=== PATIENT | male | born 1970 | race Caucasian/White ===

== ENCOUNTER 2018-05-06 17:05 | Inpatient (IN) ==
[2018-05-06] MEDS ORDERED: Isovue-370 500 ML BOTTLE IVP ONE (19:50)
[2018-05-06] MEDS ORDERED: 0.9 % Sodium Chloride 1,000 ML IVC ONE (19:51)
[2018-05-06] MEDS ORDERED: Piperacillin/Tazobactam 3.375 GM in 0.9 % Sodium Chloride Mini Bag 100 ML IVPB ONE (19:51)
--- NOTE | 2018-05-06 20:11 | Emergency Department Note ---
Disposition Clinical Impression: Abscess of arm, right, IV drug user Disposition: Admitted As Inpatient Condition: Good Referrals: NONE,PCP [Primary Care Provider] - Forms: ED Satisfaction Letter Time of Disposition: 22:10 Skin/Abscess/FB HPI Chief complaint: ED Skin/Abscess/Foreign Body Stated complaint: Abcess on right arm Time Seen by Provider: 05/06/18 19:41 Source: patient, family Mode of arrival: ambulatory Limitations: no limitations Nursing Notes Reviewed: Yes Vital Signs Reviewed: Yes HPI Narrative: Nontoxic-appearing 47-year-old male presents for evaluation of an abscess to the right antecubital region. The area began approximately 4 days ago after the pa tient injected heroin. He states a history of abscesses in the same arm in the past. He denies any associated fever, chills, nausea, vomiting, abdominal pain, or generalized malaise. Tetanus immunization status is up-to-date. He does go on to state that he has had a cough that is productive of yellowish/brownish colored sputum for the past 45 days. Pt Subjective Complaint: abscess/boil Onset (ago): day(s) (4) Tetanus Up to Date: yes Location: RUE Severity: moderate Severity scale (1-10): 6 Quality: aching Consistency: Worsening Improves with: none Worsens with: palpation, movement Context: IVDA Associated symptoms: Reports: cough. Denies: fever, chills, nausea, vomiting, malaise, arthralgias Treatments prior to arrival: none Previous Rx's Medication Instructions Recorded Acetaminophen [8 Hour] 650 mg PO Q8H PRN #24 tablet.er 03/24/18 Allergies Allergy/AdvReac Type Severity Reaction Status Date / Time hydrocodone [From Vicodin] AdvReac Itching Verified 05/05/18 13:27 All systems ED: reviewed and negative except as stated. Review of Systems: As Per HPI Constitutional: Denies: fever, chills, weakness, weight change Eyes: Denies: eye pain, eye discharge, vision change ENT ED: Denies: ear pain, throat pain, dental pain, hearing loss, epistaxis, congestion, dysphagia Cardiovascular: Denies: chest pain, palpitations, dyspnea on exertion, edema, syncope Respiratory: Reports: as per HPI, cough, sputum production. Denies: dyspnea, wheezes, hemoptysis, stridor Gastrointestinal: Denies: abdominal pain, nausea, vomiting, diarrhea, constipation, hematemesis, melena, hematochezia Genitourinary: Denies: urgency, dysuria, frequency, hematuria Musculoskeletal: Denies: back pain, neck pain, arthralgia, myalgia Integumentary: Reports: as per HPI, other (Right antecubital region abscess). Denies: rash, abrasion, lesions Neurological: Denies: headache, weakness, numbness, paresthesias, confusion, abnormal gait, vertigo Psychiatric: Denies: anxiety, depression, suicidal thoughts, homicidal thoughts, auditory hallucinations, visual hallucinations Endocrine: Denies: fatigue Hematological/Lymphatic: Denies: easy bleeding, easy bruising Allergic/Immunologic: Denies: facial swelling, urticaria Past Medical History - Past Medical History Attestation: Yes The following information was validated with the patient. Source: patient, nursing notes reviewed Medical history: Reports: no medical history Surgical history: Reports: other (Thoracotomy) Psychiatric history: Reports: no psych history - Social History Smoking Status: Current every day smoker Smokeless Tobacco Status: No Alcohol use: Reports: occasionally Drug use: Reports: IV Drug Use Physical Exam - General Limitations: no limitations General appearance: alert, in no apparent distress - Head Head exam: atraumatic, normocephalic, normal inspection - Eye Eye exam: Present: normal appearance, PERRL, EOMI. Absent: nystagmus - ENT ENT exam: mucous membranes moist - Neck Neck exam: Present: normal inspection, full ROM - Chest Chest inspection: Present: normal inspection, symmetric chest wall rise - Respiratory Respiratory exam: Present: wheezes (Faint inspiratory and expiratory wheezes noted throughout), other (Lungs sounds coarse throughout the periphery). Absent: respiratory distress, stridor, accessory muscle use, prolonged expiratory phase - Cardiovascular Cardiovascular exam: Present: regular rate, normal rhythm, normal heart sounds - Abdominal Exam Abdominal exam: Present: soft, Non-Tender, normal bowel sounds - Expanded Upper Extremity Exam Shoulder exam: Present: normal inspection, full ROM Arm exam: Present: normal inspection, full ROM Elbow exam: Present: full ROM, tenderness, swelling, erythema (Large abscess noted to the medial aspect of the right antecubital region. Moderate surrounding erythema. Area centralized fluctuance is noted. No discharge or drainage.) Forearm/Wrist exam: Present: normal inspection, full ROM Hand exam: Present: normal inspection, full ROM Neuromotor exam: Normal: wrist extension, thumb opposition, fingers 2-5 abdu ction Neurosensory exam: Normal: radial nerve, ulnar nerve, 2-point discrimination Hand tendon exam: Normal: flexor digitorum profundus (location), extensor tendon (location) Vascular exam: Normal: capillary refill, radial pulse, ulnar pulse - Neurological Exam Neurological exam: Present: alert, oriented X3, normal gait - Psychiatric Psychiatric exam: Present: normal affect, normal mood - Skin Skin exam: Present: warm, dry, intact Course Course Narrative: After review of the CT imaging and CT to very superficial puncture wounds were made with 11 blade scalpel. Very minimal amount of purulent drainage was noted. We will consult Gen. surgery admit to the hospital service for outpatient surgery consult and IV antibiotics. 2199: I spoke with Dr. Nuno, general surgery architectural draftsperson. She agrees to consult with the patient in house. At this time, I am awaiting a return phone call from the hospitalist. 2219: I spoke with Dr. Aguero of the Hospital services accepted the patient for further management. Vital Signs Temperature 100.1 F H 05/06/18 17:08 Pulse Rate 107 05/06/18 17:08 Respiratory Rate 20 05/06/18 17:08 Blood Pressure 137/86 05/06/18 17:08 O2 Sat by Pulse Oximetry 92 05/06/18 17:08 Temperature 100.1 F H 05/06/18 17:08 Pulse Rate 107 05/06/18 17:08 Respiratory Rate 20 05/06/18 17:08 Blood Pressure 137/86 05/06/18 17:08 O2 Sat by Pulse Oximetry 92 05/06/18 17:08 Oxygen Delivery Oxygen Delivery Room Air Skin/Abscess/Foreign Body - Medical Records Medical records reviewed: Yes I reviewed the patient's medical records. - Lab Data Lab results reviewed: Yes I reviewed the patient's lab results. Lab results narrative: Lab Results 05/06/18 05/06/18 05/06/18 Range/Units 20:09 20:09 20:09 WBC 10.4 (4.3-11.1) K/mcL RBC 3.69 L (4.19-5.50) M/mcL Hgb 12.0 L D (12.9-16.9) g/dL Hct 35.0 L (37.5-50.1) % MCV 94.9 (83.0-100.0) fL MCH 32.5 (28.0-33.3) pg MCHC 34.3 (31.6-35.5) g/dL RDW 12.3 (11.5-14.5) % Plt Count 129 L (140-400) K/mcL MPV 10.0 (9.4-12.4) fL Immature Gran % 0.3 (0-4) % Seg Neutrophils % 68.7 % Lymphocytes % 15.1 % Monocytes % 12.4 % Eosinophils % 2.8 % Basophils % 0.7 % Neutrophils # 7.2 (1.6-8.9) K/mcL Lymphocytes # 1.6 (0.6-4.6) K/mcL Monocytes # 1.3 (0.0-1.3) K/mcL Eosinophils # 0.3 (0.0-0.6) K/mcL Basophils # 0.1 (0.0-0.2) K/mcL ESR 36 H (0-10) mm/hr Sodium 133 L (136-145) mEq/L Potassium 4.2 (3.5-5.1) mEq/L Chloride 97 L (98-107) mEq/L Carbon Dioxide 30 H (23-29) mEq/L BUN 16 (6-20) mg/dL Creatinine 0.78 (0.70-1.30) mg/dL Est GFR ( Amer) > 60 (> 60) Est GFR (Non-Af Amer) > 60 (> 60) BUN/Creatinine Ratio 21 (6-26) Glucose 128 H (70-105) mg/dL Calculated Osmolality 279 L (280-300) Lactic Acid (0.5-2.2) mmol/L Calcium 8.6 (8.6-10.3) mg/dL C-Reactive Protein 69 H (Less than 10) mg/L 05/06/18 Range/Units 20:09 WBC (4.3-11.1) K/mcL RBC (4.19-5.50) M/mcL Hgb (12.9-16.9) g/dL Hct (37.5-50.1) % MCV (83.0-100.0) fL MCH (28.0-33.3) pg MCHC (31.6-35.5) g/dL RDW (11.5-14.5) % Plt Count (140-400) K/mcL MPV (9.4-12.4) fL Immature Gran % (0-4) % Seg Neutrophils % % Lymphocytes % % Monocytes % % Eosinophils % % Basophils % % Neutrophils # (1.6-8.9) K/mcL Lymphocytes # (0.6-4.6) K/mcL Monocytes # (0.0-1.3) K/mcL Eosinophils # (0.0-0.6) K/mcL Basophils # (0.0-0.2) K/mcL ESR (0-10) mm/hr Sodium (136-145) mEq/L Potassium (3.5-5.1) mEq/L Chloride (98-107) mEq/L Carbon Dioxide (23-29) mEq/L BUN (6-20) mg/dL Creatinine (0.70-1.30) mg/dL Est GFR ( Amer) (> 60) Est GFR (Non-Af Amer) (> 60) BUN/Creatinine Ratio (6-26) Glucose (70-105) mg/dL Calculated Osmolality (280-300) Lactic Acid 1.6 (0.5-2.2) mmol/L Calcium (8.6-10.3) mg/dL C-Reactive Protein (Less than 10) mg/L Result diagrams: 05/06/18 20:09 05/06/18 20:09 Lab Results 05/06/18 05/06/18 05/06/18 Range/Units 20:09 20:09 20:09 WBC 10.4 (4.3-11.1) K/mcL RBC 3.69 L (4.19-5.50) M/mcL Hgb 12.0 L D (12.9-16.9) g/dL Hct 35.0 L (37.5-50.1) % MCV 94.9 (83.0-100.0) fL MCH 32.5 (28.0-33.3) pg MCHC 34.3 (31.6-35.5) g/dL RDW 12.3 (11.5-14.5) % Plt Count 129 L (140-400) K/mcL MPV 10.0 (9.4-12.4) fL Immature Gran % 0.3 (0-4) % Seg Neutrophils % 68.7 % Lymphocytes % 15.1 % Monocytes % 12.4 % Eosinophils % 2.8 % Basophils % 0.7 % Neutrophils # 7.2 (1.6-8.9) K/mcL Lymphocytes # 1.6 (0.6-4.6) K/mcL Monocytes # 1.3 (0.0-1.3) K/mcL Eosinophils # 0.3 (0.0-0.6) K/mcL Basophils # 0.1 (0.0-0.2) K/mcL ESR 36 H (0-10) mm/hr Sodium 133 L (136-145) mEq/L Potassium 4.2 (3.5-5.1) mEq/L Chloride 97 L (98-107) mEq/L Carbon Dioxide 30 H (23-29) mEq/L BUN 16 (6-20) mg/dL Creatinine 0.78 (0.70-1.30) mg/dL Est GFR ( Amer) > 60 (> 60) Est GFR (Non-Af Amer) > 60 (> 60) BUN/Creatinine Ratio 21 (6-26) Glucose 128 H (70-105) mg/dL Calculated Osmolality 279 L (280-300) Lactic Acid (0.5-2.2) mmol/L Calcium 8.6 (8.6-10.3) mg/dL C-Reactive Protein 69 H (Less than 10) mg/L 05/06/18 Range/Units 20:09 WBC (4.3-11.1) K/mcL RBC (4.19-5.50) M/mcL Hgb (12.9-16.9) g/dL Hct (37.5-50.1) % MCV (83.0-100.0) fL MCH (28.0-33.3) pg MCHC (31.6-35.5) g/dL RDW (11.5-14.5) % Plt Count (140-400) K/mcL MPV (9.4-12.4) fL Immature Gran % (0-4) % Seg Neutrophils % % Lymphocytes % % Monocytes % % Eosinophils % % Basophils % % Neutrophils # (1.6-8.9) K/mcL Lymphocytes # (0.6-4.6) K/mcL Monocytes # (0.0-1.3) K/mcL Eosinophils # (0.0-0.6) K/mcL Basophils # (0.0-0.2) K/mcL ESR (0-10) mm/hr Sodium (136-145) mEq/L Potassium (3.5-5.1) mEq/L Chloride (98-107) mEq/L Carbon Dioxide (23-29) mEq/L BUN (6-20) mg/dL Creatinine (0.70-1.30) mg/dL Est GFR ( Amer) (> 60) Est GFR (Non-Af Amer) (> 60) BUN/Creatinine Ratio (6-26) Glucose (70-105) mg/dL Calculated Osmolality (280-300) Lactic Acid 1.6 (0.5-2.2) mmol/L Calcium (8.6-10.3) mg/dL C-Reactive Protein (Less than 10) mg/L - Radiology Data Radiology results reviewed: Yes I reviewed the patient's radiology results. Lab Results 05/06/18 05/06/18 05/06/18 Range/Units 20:09 20:09 20:09 WBC 10.4 (4.3-11.1) K/mcL RBC 3.69 L (4.19-5.50) M/mcL Hgb 12.0 L D (12.9-16.9) g/dL Hct 35.0 L (37.5-50.1) % MCV 94.9 (83.0-100.0) fL MCH 32.5 (28.0-33.3) pg MCHC 34.3 (31.6-35.5) g/dL RDW 12.3 (11.5-14.5) % Plt Count 129 L (140-400) K/mcL MPV 10.0 (9.4-12.4) fL Immature Gran % 0.3 (0-4) % Seg Neutrophils % 68.7 % Lymphocytes % 15.1 % Monocytes % 12.4 % Eosinophils % 2.8 % Basophils % 0.7 % Neutrophils # 7.2 (1.6-8.9) K/mcL Lymphocytes # 1.6 (0.6-4.6) K/mcL Monocytes # 1.3 (0.0-1.3) K/mcL Eosinophils # 0.3 (0.0-0.6) K/mcL Basophils # 0.1 (0.0-0.2) K/mcL ESR 36 H (0-10) mm/hr Sodium 133 L (136-145) mEq/L Potassium 4.2 (3.5-5.1) mEq/L Chloride 97 L (98-107) mEq/L Carbon Dioxide 30 H (23-29) mEq/L BUN 16 (6-20) mg/dL Creatinine 0.78 (0.70-1.30) mg/dL Est GFR ( Amer) > 60 (> 60) Est GFR (Non-Af Amer) > 60 (> 60) BUN/Creatinine Ratio 21 (6-26) Glucose 128 H (70-105) mg/dL Calculated Osmolality 279 L (280-300) Lactic Acid (0.5-2.2) mmol/L Calcium 8.6 (8.6-10.3) mg/dL C-Reactive Protein 69 H (Less than 10) mg/L 05/06/18 Range/Units 20:09 WBC (4.3-11.1) K/mcL RBC (4.19-5.50) M/mcL Hgb (12.9-16.9) g/dL Hct (37.5-50.1) % MCV (83.0-100.0) fL MCH (28.0-33.3) pg MCHC (31.6-35.5) g/dL RDW (11.5-14.5) % Plt Count (140-400) K/mcL MPV (9.4-12.4) fL Immature Gran % (0-4) % Seg Neutrophils % % Lymphocytes % % Monocytes % % Eosinophils % % Basophils % % Neutrophils # (1.6-8.9) K/mcL Lymphocytes # (0.6-4.6) K/mcL Monocytes # (0.0-1.3) K/mcL Eosinophils # (0.0-0.6) K/mcL Basophils # (0.0-0.2) K/mcL ESR (0-10) mm/hr Sodium (136-145) mEq/L Potassium (3.5-5.1) mEq/L Chloride (98-107) mEq/L Carbon Dioxide (23-29) mEq/L BUN (6-20) mg/dL Creatinine (0.70-1.30) mg/dL Est GFR ( Amer) (> 60) Est GFR (Non-Af Amer) (> 60) BUN/Creatinine Ratio (6-26) Glucose (70-105) mg/dL Calculated Osmolality (280-300) Lactic Acid 1.6 (0.5-2.2) mmol/L Calcium (8.6-10.3) mg/dL C-Reactive Protein (Less than 10) mg/L
[2018-05-06 20:22] LABS: Basophils # 0.1 K/mcL (0.0-0.2); Basophils % 0.7 %; Eosinophils # 0.3 K/mcL (0.0-0.6); Eosinophils % 2.8 %; Immature Granulocytes % 0.3 % (0-4); Lymphocytes # 1.6 K/mcL (0.6-4.6); Lymphocytes % 15.1 %; Mean Corpuscular HGB Conc 34.3 g/dL (31.6-35.5); Mean Corpuscular Hemoglobin 32.5 pg (28.0-33.3); Mean Corpuscular Volume 94.9 fL (83.0-100.0); Monocytes # 1.3 K/mcL (0.0-1.3); Monocytes % 12.4 %; Neutrophils # 7.2 K/mcL (1.6-8.9); Platelet Count 129 K/mcL (140-400); Red Blood Count 3.69 M/mcL (4.19-5.50); Red Cell Distribution Width 12.3 % (11.5-14.5); Segmented Neutrophils % 68.7 %
[2018-05-06] MEDS ORDERED: Ondansetron 4 MG/2 ML VIAL IVP ONE (20:40)
[2018-05-06 20:41] LABS: BUN/Creatinine Ratio 21 (6-26); Blood Urea Nitrogen 16 mg/dL (6-20); C-Reactive Protein 69 mg/L (Less than 10); Calcium 8.6 mg/dL (8.6-10.3); Carbon Dioxide 30 mEq/L (23-29); Chloride 97 mEq/L (98-107); Glucose 128 mg/dL (70-105); Osmolality,Calculated 279 (280-300); Potassium 4.2 mEq/L (3.5-5.1); Sodium 133 mEq/L (136-145); eGFR For Non-African Americans > 60 (> 60)
--- NOTE | 2018-05-06 21:53 | Emergency Department Note ---
Disposition Clinical Impression: Abscess of arm, right, IV drug user Disposition: Admitted As Inpatient Forms: ED Satisfaction Letter General Adult HPI - General Chief complaint: ED Skin/Abscess/Foreign Body Stated complaint: Abcess on right arm Time Seen by Provider: 05/06/18 19:41 Source: patient, family Mode of arrival: ambulatory Limitations: no limitations - History of Present Illness Pain Scale: 6 - Related Data Previous Rx's Medication Instructions Recorded Acetaminophen [8 Hour] 650 mg PO Q8H PRN #24 tablet.er 03/24/18 Allergies Allergy/AdvReac Type Severity Reaction Status Date / Time hydrocodone [From Vicodin] AdvReac Itching Verified 05/05/18 13:27 Constitutional: Denies: fever, chills, weakness, weight change Eyes: Denies: eye pain, eye discharge, vision change ENT ED: Denies: ear pain, throat pain, dental pain, hearing loss, epistaxis, congestion, dysphagia Cardiovascular: Denies: chest pain, palpitations, dyspnea on exertion, edema, syncope Respiratory: Reports: as per HPI, cough, sputum production. Denies: dyspnea, wheezes, hemoptysis, stridor Gastrointestinal: Denies: abdominal pain, nausea, vomiting, diarrhea, constipation, hematemesis, melena, hematochezia Genitourinary: Denies: urgency, dysuria, frequency, hematuria Musculoskeletal: Denies: back pain, neck pain, arthralgia, myalgia Integumentary: Reports: as per HPI, other (Right antecubital region abscess). Denies: rash, abrasion, lesions Neurological: Denies: headache, weakness, numbness, paresthesias, confusion, abnormal gait, vertigo Psychiatric: Denies: anxiety, depression, suicidal thoughts, homicidal thoughts, auditory hallucinations, visual hallucinations Endocrine: Denies: fatigue Hematological/Lymphatic: Denies: easy bleeding, easy bruising Allergic/Immunologic: Denies: facial swelling, urticaria Past Medical History - Past Medical History Medical history: Reports: no medical history Surgical history: Reports: other (Thoracotomy) Psychiatric history: Reports: no psych history - Social History Smoking Status: Current every day smoker Smokeless Tobacco Status: No Alcohol use: Reports: occasionally Drug use: Reports: IV Drug Use Physical Exam - General Limitations: no limitations General appearance: alert, in no apparent distress Course Vital Signs Temperature 100.1 F H 05/06/18 17:08 Pulse Rate 107 05/06/18 17:08 Respiratory Rate 20 05/06/18 17:08 Blood Pressure 137/86 05/06/18 17:08 O2 Sat by Pulse Oximetry 92 05/06/18 17:08 Temperature 100.1 F H 05/06/18 17:08 Pulse Rate 107 05/06/18 17:08 Respiratory Rate 20 05/06/18 17:08 Blood Pressure 137/86 05/06/18 17:08 O2 Sat by Pulse Oximetry 92 05/06/18 17:08 Oxygen Delivery Oxygen Delivery Room Air Medical Decision Making - Medical Records Medical records reviewed: Yes I reviewed the patient's medical records. - Lab Data Lab results reviewed: Yes I reviewed the patient's lab results. Result diagrams: 05/06/18 20:09 05/06/18 20:09 Lab Results 05/06/18 05/06/18 05/06/18 Range/Units 20:09 20:09 20:09 WBC 10.4 (4.3-11.1) K/mcL RBC 3.69 L (4.19-5.50) M/mcL Hgb 12.0 L D (12.9-16.9) g/dL Hct 35.0 L (37.5-50.1) % MCV 94.9 (83.0-100.0) fL MCH 32.5 (28.0-33.3) pg MCHC 34.3 (31.6-35.5) g/dL RDW 12.3 (11.5-14.5) % Plt Count 129 L (140-400) K/mcL MPV 10.0 (9.4-12.4) fL Immature Gran % 0.3 (0-4) % Seg Neutrophils % 68.7 % Lymphocytes % 15.1 % Monocytes % 12.4 % Eosinophils % 2.8 % Basophils % 0.7 % Neutrophils # 7.2 (1.6-8.9) K/mcL Lymphocytes # 1.6 (0.6-4.6) K/mcL Monocytes # 1.3 (0.0-1.3) K/mcL Eosinophils # 0.3 (0.0-0.6) K/mcL Basophils # 0.1 (0.0-0.2) K/mcL ESR 36 H (0-10) mm/hr Sodium 133 L (136-145) mEq/L Potassium 4.2 (3.5-5.1) mEq/L Chloride 97 L (98-107) mEq/L Carbon Dioxide 30 H (23-29) mEq/L BUN 16 (6-20) mg/dL Creatinine 0.78 (0.70-1.30) mg/dL Est GFR ( Amer) > 60 (> 60) Est GFR (Non-Af Amer) > 60 (> 60) BUN/Creatinine Ratio 21 (6-26) Glucose 128 H (70-105) mg/dL Calculated Osmolality 279 L (280-300) Lactic Acid (0.5-2.2) mmol/L Calcium 8.6 (8.6-10.3) mg/dL C-Reactive Protein 69 H (Less than 10) mg/L 05/06/18 Range/Units 20:09 WBC (4.3-11.1) K/mcL RBC (4.19-5.50) M/mcL Hgb (12.9-16.9) g/dL Hct (37.5-50.1) % MCV (83.0-100.0) fL MCH (28.0-33.3) pg MCHC (31.6-35.5) g/dL RDW (11.5-14.5) % Plt Count (140-400) K/mcL MPV (9.4-12.4) fL Immature Gran % (0-4) % Seg Neutrophils % % Lymphocytes % % Monocytes % % Eosinophils % % Basophils % % Neutrophils # (1.6-8.9) K/mcL Lymphocytes # (0.6-4.6) K/mcL Monocytes # (0.0-1.3) K/mcL Eosinophils # (0.0-0.6) K/mcL Basophils # (0.0-0.2) K/mcL ESR (0-10) mm/hr Sodium (136-145) mEq/L Potassium (3.5-5.1) mEq/L Chloride (98-107) mEq/L Carbon Dioxide (23-29) mEq/L BUN (6-20) mg/dL Creatinine (0.70-1.30) mg/dL Est GFR ( Amer) (> 60) Est GFR (Non-Af Amer) (> 60) BUN/Creatinine Ratio (6-26) Glucose (70-105) mg/dL Calculated Osmolality (280-300) Lactic Acid 1.6 (0.5-2.2) mmol/L Calcium (8.6-10.3) mg/dL C-Reactive Protein (Less than 10) mg/L - Radiology Data Radiology results reviewed: Yes I reviewed the patient's radiology results. Critical Care Time Critical Care Time: No Attestation Statement - Attestation Attestation: I examined this patient and my medical decision-making was reviewed with the SUPERVISOR SCREEN MAKING. I agree with the documented findings, disposition and treatment plan as described except to the extent set forth below. 47-year-old male in presented to the emergency room for swelling and redness to the right antecubital region of the right arm. Patient has a history of IV drug use. Had recent surgery around [place] time for a large abscess associated with IV drug use. He presents again today for increasing redness and swelling concerning for an abscess formation in this right elbow region. We did a CT scan which shows a rim enhancing fluid collection consistent with abscess in the same region. We will do a local stab incision as the area is right next to a superficial vein. Patient will be started on IV vancomycin and IV Zosyn and will need to be readmitted for further antibiotic treatment for this secondary to his previous history. The stab incision procedure was done by the nurse practitioner.
[2018-05-06] MEDS ORDERED: *HR* FentaNYL (PF) 100 MCG/2 ML VIAL IVP ONE (22:46)
[2018-05-07] MEDS ORDERED: Naloxone 0.4 MG/ML INJ IVP PRN ×2 (05:32→16:14)
--- NOTE | 2018-05-07 06:06 | Internal Med History&Physical ---
Date of Encounter: 05/07/18 Time of Encounter: 04:30 Internal Medicine - H&P: HPI Chief complaint: Right Arm Abscess Admitted From: Home Plans for Post Hospital Care: Home History of present illness: Mr. Redding is a 47 year old male with past medical history of pneumonia, sepsis, and IV drug abuse with previous abscesses who presents for complaints of abscess to right antecubital fossa getting progressively worse over past five days following injecting heroin. Was seen and treated for same in February 2018 near the same site but patient states this isn't the same exact site as last time. Site has been getting increasingly red, swollen, warm, and painful. No alleviating or exacerbating factors. No home treatment. Denies headache, chest pain, shortness of breath, abdominal pain, bowel or bladder changes, numbness, tingling, fever, or chills. Does report intermittent productive cough with yellow sputum over past two weeks so ER obtained chest xray which showed no acute process. ER performed stab incision with some drainage and pain relief. ER also consulted debt collection specialist surgery who will see patient later today. Reports using IV heroin twice per day but has not used any for past 4 days due to abscess. Patient denies any daily medications. Past Med Surg Social Fam HX - Past Medical History Medical history: no medical history Additional medical history: pneumonia. sepsis Psychiatric history: no psych history - Past Surgical History Surgical History: other Additional surgical history: Patient reports that they "cut me open, broke my ribs I guess, and scraped my lungs. Dr. Nino did it about 5 years ago. I had walking pneumonia." - Social History Smoking Status: Current every day smoker Packs per day: 1 Smokeless Tobacco Status: No Alcohol use: rarely Drug use: IV Drug Use - Family History Mother Hx Family Cardiac Disorders: Yes ([place],) Hx Family Endocrine Disorder: Yes (Diabetic) Hx Family HEENT Disorders: Yes (Glaucoma) Internal Medicine - H&P: Meds Acetaminophen [8 Hour] 650 mg PO Q8H PRN #24 tablet.er 03/24/18 [Rx] Allergy/AdvReac Type Severity Reaction Status Date / Time hydrocodone [From Vicodin] AdvReac Itching Verified 05/05/18 13:27 All Systems PM: A 10-system review of systems was performed and is negative for pertinent findings except as documented above in the HPI. - Constitutional Vitals: Temp Pulse Resp BP Pulse Ox 98.2 F 76 17 116/70 96 05/07/18 03:17 05/07/18 00:30 05/07/18 03:17 05/07/18 03:17 05/07/18 03:17 Exam: General: Alert and oriented. Skin:Normal color, no rash. Multiple IV drug use lesions noted to upper extremities. HEENT:Pupils equal, round and reactive. Cardiovascular:Normal S1 & S2, no rubs, murmurs or gallops. No JVD. Pulse regular. Lungs:Breath sounds decreased, no wheezes or crackles. Abdomen:Soft, non-tender, no rigidity. Extremities:No deformity, no clubbing. Edema, redness, warmth, and tenderness noted to right antecubital fossa. Serosanguineous drainage noted. Distal PMS intact. Neurological:Normal cognition and motor skills. Pulses:Carotid and radial pulses normal +2. Rest of the physical exam is non contributory. Internal Med - H&P Results - Labs CBC & Chem 7: 05/06/18 20:09 05/06/18 20:09 Labs: Short CBC 05/06/18 Range/Units 20:09 WBC 10.4 (4.3-11.1) K/mcL Hgb 12.0 L D (12.9-16.9) g/dL Hct 35.0 L (37.5-50.1) % Plt Count 129 L (140-400) K/mcL Neutrophils # 7.2 (1.6-8.9) K/mcL BMP 05/06/18 20:09 Sodium 133 L Potassium 4.2 Chloride 97 L Carbon Dioxide 30 H BUN 16 Creatinine 0.78 Glucose 128 H Calcium 8.6 - Impressions ITS Impressions Elbow CT 05/06/18 19:50 IMPRESSION: 1. Rim enhancing fluid collection at the antecubital fossa measuring approximately 1.7 x 2.6 x 2.6 cm compatible with abscess. A superficial vein right to the center of this collection. Surrounding soft tissue edema and skin thickening consistent with cellulitis. 2. No acute osseous abnormality and no CT evidence for osteomyelitis. 3. Mild degenerative changes of the ulnar trochlear joint. D/ / Hernando Guevara MD / Hernando Guevara MD Interpreting Provider: Hernando Guevara MD Chest X-Ray 05/06/18 19:56 IMPRESSION: No acute process. D/ / Jason Joe MD / Jason Joe MD Interpreting Provider: Jason Joe MD - Assessment and plan (1) Cellulitis and abscess of upper extremity Current Visit: Yes Status: Acute Assessment and plan: Right elbow CT showing abscess and cellulitis. ER consulted surgery, will see patient later today. ER started Vancomycin and Zosyn, will continue same. Blood cultures pending. NPO. PRN pain control. (2) IV drug abuse Current Visit: Yes Status: Chronic Assessment and plan: Cessation encouraged. Will consider outpatient resources at discharge. (3) Tobacco abuse Current Visit: Yes Status: Chronic Assessment and plan: Cessation encouraged. Refuses nicotine patch. (4) Decreased hemoglobin Current Visit: Yes Status: Acute Assessment and plan: Repeat labs ordered. (5) Serum sodium decreased Current Visit: Yes Status: Acute Assessment and plan: Repeat labs ordered. - Time Spent With Patient Total time spent is greater than 50% in coordination of care (as documented) at patient's floor/unit and/or counseling patient:
[2018-05-07 06:19] LABS: Basophils # 0.1 K/mcL (0.0-0.2); Basophils % 0.7 %; Eosinophils # 0.2 K/mcL (0.0-0.6); Eosinophils % 2.1 %; Hematocrit 36.5 % (37.5-50.1); Hemoglobin 12.6 g/dL (12.9-16.9); Immature Granulocytes % 0.4 % (0-4); Lymphocytes # 1.2 K/mcL (0.6-4.6); Lymphocytes % 14.2 %; Mean Corpuscular HGB Conc 34.5 g/dL (31.6-35.5); Mean Corpuscular Hemoglobin 32.2 pg (28.0-33.3); Mean Corpuscular Volume 93.4 fL (83.0-100.0); Monocytes # 0.9 K/mcL (0.0-1.3); Monocytes % 10.6 %; Neutrophils # 6.2 K/mcL (1.6-8.9); Platelet Count 125 K/mcL (140-400); Red Blood Count 3.91 M/mcL (4.19-5.50); Red Cell Distribution Width 12.2 % (11.5-14.5)
[2018-05-07] MEDS: Ketorolac 15 MG/ML VIAL IVP PRN ×3 (06:30→21:45)
[2018-05-07 06:35] LABS: BUN/Creatinine Ratio 13 (6-26); Blood Urea Nitrogen 10 mg/dL (6-20); Calcium 8.9 mg/dL (8.6-10.3); Carbon Dioxide 28 mEq/L (23-29); Chloride 104 mEq/L (98-107); Glucose 120 mg/dL (70-105); Osmolality,Calculated 284 (280-300); Potassium 4.2 mEq/L (3.5-5.1); Sodium 137 mEq/L (136-145); eGFR For Non-African Americans > 60 (> 60)
[2018-05-07 06:36] LABS: INR 1.3; Prothrombin Time 14.5 Seconds (9.4-12.1)
--- NOTE | 2018-05-07 07:00 | General Surgery Consult Note ---
Date of Encounter: 05/07/18 Time of Encounter: 06:00 Assessment and Plan (1) Abscess of arm, right Current Visit: Yes Status: Acute Discussed with pt his diagnosis of right arm abscess. He will need a definitive I&D of abscess. Procedure, risks and benefits of I&D are d/w pt. Possible complications are bleeding, worsening infection or nerve injury. Pt understands and wishes to proceed [place]. (2) IV drug abuse Current Visit: Yes Status: Chronic History of Present Illness Consult date: 05/07/18 Reason for consult: other (right antecubital abscess) History of present illness: This 47 y/o male presents to [facility] ED complaining of a painful, red abscess on his right arm. He admits to using IV drugs at that site 5 days ago. The pain and redness started after that and has progressively worsened. The ED lanced the abscess with some but, inadequate drainage of roe, malodorous purulent drainage. This was cultured and cultures are pending. He continues to c/o pain and ongoing drainage. He c/o cough. He denies any other problems. He denies fevers. Past Med Surg Social Fam HX - Past Medical History Medical history: no medical history Additional medical history: pneumonia. sepsis Psychiatric history: no psych history - Past Surgical History Surgical History: other Additional surgical history: Patient reports that they "cut me open, broke my ribs I guess, and scraped my lungs. Dr. Nino did it about 5 years ago. I had walking pneumonia." - Social History Smoking Status: Current every day smoker Packs per day: 1 Smokeless Tobacco Status: No Alcohol use: rarely Drug use: IV Drug Use (recent) - Family History Mother Hx Family Cardiac Disorders: Yes ([place],) Hx Family Endocrine Disorder: Yes (Diabetic) Hx Family HEENT Disorders: Yes (Glaucoma) Medications and Allergies Acetaminophen [8 Hour] 650 mg PO Q8H PRN #24 tablet.er 03/24/18 [Rx] Allergy/AdvReac Type Severity Reaction Status Date / Time hydrocodone [From Vicodin] AdvReac Itching Verified 05/05/18 13:27 Review of Systems All systems PM: The remainder of the systems were reviewed and are negative General Surgery Exam Initial Vital Signs Temp Pulse Resp BP Pulse Ox 100.1 F H 107 20 137/86 92 05/06/18 17:08 05/06/18 17:08 05/06/18 17:08 05/06/18 17:08 05/06/18 17:08 - General physical appearance well developed, no distress - Eyes PERRL - ENT no congestion. negative: nasal discharge - Neck no lymphadectomy, no venous distension - Respiratory normal respiratory effort, clear to auscultation - Cardiovascular Cardiovascular exam: Present: RRR - Abdomen Abdomen general surgery: Present: non tender. Absent: distended, tender - Integumentary Integumentary general surgery: Present: other (right antecubital abscess) - Neurologic Present: CN 2-12 grossly intact, normal sensation - Musculoskeletal Present: normal gait - Psychiatric Psychiatric general surgery: Present: A&Ox3, appropriate Exam Initial Vital Signs Temp Pulse Resp BP Pulse Ox 100.1 F H 107 20 137/86 92 05/06/18 17:08 05/06/18 17:08 05/06/18 17:08 05/06/18 17:08 05/06/18 17:08 Results - Labs 05/07/18 05:56 05/07/18 05:56 Abnormal lab results RBC 3.91 M/mcL (4.19-5.50) L 05/07/18 05:56 Hgb 12.6 g/dL (12.9-16.9) L 05/07/18 05:56 Hct 36.5 % (37.5-50.1) L 05/07/18 05:56 Plt Count 125 K/mcL (140-400) L 05/07/18 05:56 ESR 36 mm/hr (0-10) H 05/06/18 20:09 Glucose 120 mg/dL (70-105) H 05/07/18 05:56 C-Reactive Protein 69 mg/L (Less than 10) H 05/06/18 20:09 Diabetes panel 05/06/18 05/07/18 Range/Units 20:09 05:56 Sodium 133 L 137 (136-145) mEq/L Potassium 4.2 4.2 (3.5-5.1) mEq/L Chloride 97 L 104 (98-107) mEq/L Carbon Dioxide 30 H 28 (23-29) mEq/L BUN 16 10 (6-20) mg/dL Creatinine 0.78 0.75 (0.70-1.30) mg/dL Glucose 128 H 120 H (70-105) mg/dL Calcium 8.6 8.9 (8.6-10.3) mg/dL Calcium panel 05/06/18 05/07/18 Range/Units 20:09 05:56 Calcium 8.6 8.9 (8.6-10.3) mg/dL Pituitary panel 05/06/18 05/07/18 Range/Units 20:09 05:56 Sodium 133 L 137 (136-145) mEq/L Potassium 4.2 4.2 (3.5-5.1) mEq/L Chloride 97 L 104 (98-107) mEq/L Carbon Dioxide 30 H 28 (23-29) mEq/L BUN 16 10 (6-20) mg/dL Creatinine 0.78 0.75 (0.70-1.30) mg/dL Glucose 128 H 120 H (70-105) mg/dL Calcium 8.6 8.9 (8.6-10.3) mg/dL Adrenal panel 05/06/18 05/07/18 Range/Units 20:09 05:56 Sodium 133 L 137 (136-145) mEq/L Potassium 4.2 4.2 (3.5-5.1) mEq/L Chloride 97 L 104 (98-107) mEq/L Carbon Dioxide 30 H 28 (23-29) mEq/L BUN 16 10 (6-20) mg/dL Creatinine 0.78 0.75 (0.70-1.30) mg/dL Glucose 128 H 120 H (70-105) mg/dL Calcium 8.6 8.9 (8.6-10.3) mg/dL All other labs normal. Consult Discharge Plan - Plan Referrals: NONE,PCP [Primary Care Provider] -
[2018-05-07] MEDS: Piperacillin/Tazobactam 3.375 GM in 0.9 % Sodium Chloride Mini Bag 100 ML IVPB SCH ×3 (08:02→23:59)
--- NOTE | 2018-05-07 08:35 | Event Note ---
Date of Encounter: 05/07/18 Time of Encounter: 07:45 The patient is seen and evaluated on morning rounds. I personally examined the patient and agreed that incision and drainage of the right antecubital abscess will need to be done in the main operating room under conscious sedation or general anesthetic. Cultures will be taken at that time. He is to remain nothing by mouth. The patient stated that he was concerned about his breathing and was actively wheezing on auscultation. We will start albuterol nebulizer every 6 hours. Incision and drainage later today
[2018-05-07] MEDS: Albuterol 2.5 MG/3 ML NEBULIZER IH SCH ×3 (10:54→22:25)
[2018-05-07] MEDS ORDERED: *HR* Propofol 200 MG/20 ML VIAL IVP ONE (14:59)
[2018-05-07] MEDS ORDERED: *HR* Midazolam HCl 2 MG/2 ML VIAL ONE (15:00)
[2018-05-07] MEDS ORDERED: *HR* FentaNYL (PF) 100 MCG/2 ML VIAL ONE ×2 (15:00→15:36)
[2018-05-07] MEDS ORDERED: Lidocaine -MPF 2% 2 ML VIAL ONE (15:00)
--- NOTE | 2018-05-07 15:20 | Anesthesia Evaluation PreOp ---
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 Other Medical History: Other (IV Drug abuse (heroin)) Alcohol Use: rarely Drug use: IV Drug Use (recent) Medications and Allergies Acetaminophen [8 Hour] 650 mg PO Q8H PRN #24 tablet.er 03/24/18 [Rx] Allergy/AdvReac Type Severity Reaction Status Date / Time hydrocodone [From Vicodin] AdvReac Itching Verified 05/05/18 13:27 - Meds/Allergy Pre-op Review Medications Reviewed: Yes Allergies Reviewed: Yes Beta Blockers on Current Med List: No Anesthesia Results - Labs 05/07/18 05:56 05/07/18 05:56 Anesthesia Exam Last Vital Signs Temp 98.2 F 05/07/18 10:35 Pulse 56 05/07/18 10:35 Resp 16 05/07/18 10:57 BP 107/68 05/07/18 10:35 Pulse Ox 94 05/07/18 10:57 Weight: 66 kg NPO (# of Hours): > 8 hrs - HEENT Pupil (Motor): Pupils equal, EOMI Mallampati: III Teeth: Missing, Poor dentition Oral Opening: Greater than 3 - MUSIC PROFESSOR LOC: Oriented - Cardiac Rhythm: Regular Murmur: None - Pulmonary Breath Sounds: bilateral Clear Respiratory Effort: Symmetrical Anesthesia Assess/Plan ASA Score: 3 Level of consciousness: Cooperative Anesthetic Plan: General Monitoring Plan: Standard Monitors Recovery Plan: PACU
[2018-05-07] MEDS ORDERED: *HR* Promethazine 25 MG/ML VIAL IVP PRN ×2 (15:22→16:14)
[2018-05-07] MEDS ORDERED: *HR* OxyCODONE Immed Rel 5 MG TABLET PO PRN ×2 (15:22→16:14)
[2018-05-07] MEDS ORDERED: Ketorolac 30 MG/ML VIAL ONE (15:59)
--- NOTE | 2018-05-07 16:02 | Operative Note ---
Date of procedure: 05/07/18 Pre-op diagnosis: Abscess right antecubital fossa Post-op diagnosis: other (#1 abscess right antecubital fossa. #2 septic thrombophlebitis antecubital vein) Procedure: #1 resection of septic thrombophlebitis (antecubital vein) #2 incision and drainage of abscess Anesthesia: LUZ MARIA Surgeon: Christiano Sanders Was there an certified physician's assistant present: Yes Info Specialist: Abena Fox Estimated blood loss (cc): 10 Specimen: Septic thrombophlebitis. Aerobic and anaerobic cultures Condition: stable Disposition: PACU Procedure in Detail: After informed consent the patients taking major operating suite placed supine position given adequate general endotracheal anesthesia. The right arm was prepped and draped in sterile fashion utilizing Betadine solution and standard draping techniques. Timeout was taken and the patient was identified. The lateralizing catarina was identified. I opened the abscess with a #15 blade. I immediately obtained aerobic and anaerobic cultures. The antecubital vein was in the middle of the abscess cavity. This was rock hard and obviously the source of the abscess. This was segmental septic thrombophlebitis. I resected the antecubital vein with clamps and hemostatic ligatures of Vicryl. The abscess cavity was irrigated with copious amounts of pulse lavage with Ancef antibiotic. The cavity was packed with iodoform. He tolerated the procedure well
--- NOTE | 2018-05-07 16:46 | Anesthesia Evaluation Post Op ---
Date of Encounter: 05/07/18 Time of Encounter: 16:44 - Vital Signs Vital Signs: Last Vital Signs Temp 98.7 F 05/07/18 16:35 Pulse 74 05/07/18 16:35 Resp 20 05/07/18 16:35 BP 110/81 05/07/18 16:35 Pulse Ox 96 05/07/18 16:35 - Lungs Lungs: Clear Ascult./Percussion - Airway Airway: Non-obstructed - Cardiovascular Regular Rate - Mental Status Mental Status: Alert & Oriented, Answers Appropriately - Pain Pain Scale: 2 - Nausea Vomiting Nausea Vomiting: Not Present - Hydration Hydration: NPO - Discharge PostOp Status: Transfer Patient to floor
[2018-05-08] MEDS ORDERED: Melatonin 3 MG TABLET PO ONE (02:29)
[2018-05-08 04:02] LABS: Hematocrit 34.1 % (37.5-50.1); Hemoglobin 11.7 g/dL (12.9-16.9); Mean Corpuscular HGB Conc 34.3 g/dL (31.6-35.5); Mean Corpuscular Hemoglobin 32.5 pg (28.0-33.3); Mean Corpuscular Volume 94.7 fL (83.0-100.0); Mean Platelet Volume 10.5 fL (9.4-12.4); Platelet Count 116 K/mcL (140-400); Red Cell Distribution Width 12.1 % (11.5-14.5)
[2018-05-08 04:20] LABS: BUN/Creatinine Ratio 19 (6-26); Blood Urea Nitrogen 15 mg/dL (6-20); Calcium 8.6 mg/dL (8.6-10.3); Carbon Dioxide 27 mEq/L (23-29); Chloride 107 mEq/L (98-107); Glucose 133 mg/dL (70-105); Osmolality,Calculated 293 (280-300); Potassium 4.4 mEq/L (3.5-5.1); Sodium 140 mEq/L (136-145); eGFR For Non-African Americans > 60 (> 60)
[2018-05-08] MEDS: Albuterol 2.5 MG/3 ML NEBULIZER IH SCH ×4 (04:44→21:32)
[2018-05-08] MEDS: Ketorolac 15 MG/ML VIAL IVP PRN ×2 (06:40→19:36)
[2018-05-08] MEDS: Piperacillin/Tazobactam 3.375 GM in 0.9 % Sodium Chloride Mini Bag 100 ML IVPB SCH ×2 (08:46→16:30)
[2018-05-08] MEDS: traMADol 50 MG TABLET PO PRN ×3 (10:08→22:41)
--- NOTE | 2018-05-08 10:34 | Internal Med Progress Note ---
Hospitalist Progress Note - Encounter Date of Encounter: 05/08/18 Time of Encounter: 10:32 - Subjective Interval History: Pt resting, has no complaints. - Exam Vitals: Temp Pulse Resp BP Pulse Ox 98.0 F 48 16 114/71 94 05/08/18 08:23 05/08/18 08:23 05/08/18 09:42 05/08/18 09:42 05/08/18 09:42 Exam: General: Alert and oriented. Skin:Normal color, no rash. Multiple IV drug use lesions noted to upper extremities. HEENT:Pupils equal, round and reactive. Cardiovascular:Normal S1 & S2, no rubs, murmurs or gallops. No JVD. Pulse regular. Lungs:Breath sounds decreased, no wheezes or crackles. Abdomen:Soft, non-tender, no rigidity. Extremities:No deformity, no clubbing. Edema, redness, warmth, and tenderness noted to right antecubital fossa. Serosanguineous drainage noted. Distal PMS intact. Neurological:Normal cognition and motor skills. Pulses:Carotid and radial pulses normal +2. Rest of the physical exam is non contributory. - Assessment and Plan (1) Cellulitis and abscess of upper extremity Current Visit: Yes Status: Acute Assessment and Plan: 05/[address] showing abscess and cellulitis. ER consulted surgery, will see patient later today. ER started Vancomycin and Zosyn, will continue same. Blood cultures pending. NPO. PRN pain control. 05/08 S/p I+D of right elbow abscess. Pending wound culture. Continue IV abx for now. (2) IV drug abuse Current Visit: Yes Status: Chronic Assessment and Plan: Cessation encouraged. Will consider outpatient resources at discharge. (3) Tobacco abuse Current Visit: Yes Status: Chronic Assessment and Plan: Cessation encouraged. Refuses nicotine patch. (4) Decreased hemoglobin Current Visit: Yes Status: Resolved Assessment and Plan: Repeat labs ordered. H/H stable. (5) Serum sodium decreased Current Visit: Yes Status: Resolved DVT Prophylaxis: SCDs. - Time Spent with Patient Total time spent is greater than 50% in coordination of care (as documented) at patient's floor/unit and/or counseling patient: Greater than 35 minutes Plan of Care Discussed with: patient Internal Medicine: Result - Labs CBC & Chem 7: 05/08/18 03:28 05/08/18 03:28 Labs: Short CBC 05/08/18 Range/Units 03:28 WBC 5.0 (4.3-11.1) K/mcL Hgb 11.7 L (12.9-16.9) g/dL Hct 34.1 L (37.5-50.1) % Plt Count 116 L (140-400) K/mcL BMP 05/08/18 03:28 Sodium 140 Potassium 4.4 Chloride 107 Carbon Dioxide 27 BUN 15 Creatinine 0.79 Glucose 133 H Calcium 8.6 - ABG Interpretation ABG results: PT/INR, D-dimer PT 14.5 Seconds (9.4-12.1) H 05/07/18 05:56 - VTE Documentation of Mechanical Device: Intermittent pneumatic compression device Consult Discharge Plan - Plan Referrals: NONE,PCP [Primary Care Provider] -
[2018-05-08] MEDS ORDERED: Aminoglycoside Consult 1 EACH MC ONE (11:39)
--- NOTE | 2018-05-08 12:37 | Electrocardiograph Report ---
[address] [address] Test Date: 2018-05-07 Pat Name: Huber Redding Department: 113 Room: [facility] Gender: M Building Code Inspector: [id number] : 1970 Requested By: Carl Conley Order Number: [id number] Reading MD: Mi Johnson Measurements Intervals [place] Rate: 64 P: 64 ID: [id number] QRS: 76 QRSD: 85 T: 56 QT: 382 QTc: 392 Interpretive Statements SINUS RHYTHM Electronically Signed On 05-08-2018 12:36:19 EST by Mi Johnson
--- NOTE | 2018-05-08 13:31 | General Surgery Progress Note ---
Date of Encounter: 05/08/18 Time of Encounter: 12:30 - Assessment and Plan (1) Cellulitis and abscess of upper extremity Current Visit: Yes Status: Acute I would recommend daily packing with iodoform with a secondary dressing of gauze and tape. I will be glad to follow him as an outpatient in my office for wound management. We will sign off Christiano Sanders MD FACS Subjective Narrative: The patient is postoperative day 1 from incision and drainage of antecubital abscess with resection of septic thrombophlebitis. The patient states his arm is much better but unfortunately he is complaining of 10 out of 10 pain and requesting high doses of narcotics. This is not uncommon for IV narcotic abusers. Tramadol was more than reasonable for his discomfort. Continue daily iodoform packing. I will be glad to see the patient as an outpatient for wound management. Christiano Sanders MD FACS Objective Vital Signs - Last 8 Hours Temp Pulse Resp BP Pulse Ox 05/08/18 13:10 98.0 F 56 16 118/65 97 05/08/18 09:42 16 114/71 94 05/08/18 08:23 98.0 F 48 18 114/71 98 Intake and Output 05/07/18 05/08/18 05/08/18 23:59 07:59 15:59 Intake Total 490 / 490 100 / 100 610 / 610 Output Total 305 / 305 250 / 250 Balance 185 / 185 -150 / -150 610 / 610 Intake: IV Fluids 250 / 250 100 / 100 250 / 250 Zosyn 3.375 GM In 0.9 % Sodium 100 / 100 Chloride (Mini-Bag +) 100 ML @ 25 mls/hr IVPB Q8HR ANDRAE Rx#: [id number] Vancocin 1,000 MG In 0.9 % 250 / 250 250 / 250 Sodium Chloride 250 ML @ 166. 667 mls/hr IVPB Q12H ANDRAE Rx#: [id number] Oral 240 / 240 360 / 360 Output: Urine 300 / 300 250 / 250 Estimated Blood Loss 5 / 5 Other: Meal Dinner Lunch Percent of Meal Consumed 100% 50% Weight 66.9 kg Patient Weight 05/08/18 23:59 Weight 66.9 kg - General physical appearance severe pain (The patient reports severe pain for a 3 cm incision. Tramadol was more than adequate for this size incision), chronically ill - Respiratory normal expansion, normal respiratory effort, clear to percussion, clear to auscultation - Cardiovascular Cardiovascular exam: Present: RRR, no murmurs/rubs/gallops - Abdomen Abdomen: Present: bowel sounds present, soft, non tender - Neurologic normal coordination, normal sensation - Psychiatric oriented to time, oriented to person, oriented to place, speech is normal, memory intact, other (Agitated) - Labs 05/08/18 03:28 05/08/18 03:28 Diabetes panel 05/08/18 Range/Units 03:28 Sodium 140 (136-145) mEq/L Potassium 4.4 (3.5-5.1) mEq/L Chloride 107 (98-107) mEq/L Carbon Dioxide 27 (23-29) mEq/L BUN 15 (6-20) mg/dL Creatinine 0.79 (0.70-1.30) mg/dL Glucose 133 H (70-105) mg/dL Calcium 8.6 (8.6-10.3) mg/dL Calcium panel 05/08/18 Range/Units 03:28 Calcium 8.6 (8.6-10.3) mg/dL Pituitary panel 05/08/18 Range/Units 03:28 Sodium 140 (136-145) mEq/L Potassium 4.4 (3.5-5.1) mEq/L Chloride 107 (98-107) mEq/L Carbon Dioxide 27 (23-29) mEq/L BUN 15 (6-20) mg/dL Creatinine 0.79 (0.70-1.30) mg/dL Glucose 133 H (70-105) mg/dL Calcium 8.6 (8.6-10.3) mg/dL Adrenal panel 05/08/18 Range/Units 03:28 Sodium 140 (136-145) mEq/L Potassium 4.4 (3.5-5.1) mEq/L Chloride 107 (98-107) mEq/L Carbon Dioxide 27 (23-29) mEq/L BUN 15 (6-20) mg/dL Creatinine 0.79 (0.70-1.30) mg/dL Glucose 133 H (70-105) mg/dL Calcium 8.6 (8.6-10.3) mg/dL - VTE Documentation of Mechanical Device: Intermittent pneumatic compression device Consult Discharge Plan - Plan Referrals: NONE,PCP [Primary Care Provider] -
[2018-05-08] MEDS ORDERED: Psyllium 1 PACKET POWD.PACK PO PRN (20:25)
[2018-05-09] MEDS: Piperacillin/Tazobactam 3.375 GM in 0.9 % Sodium Chloride Mini Bag 100 ML IVPB SCH ×2 (00:13→09:01)
[2018-05-09] MEDS: Ketorolac 15 MG/ML VIAL IVP PRN (03:26)
[2018-05-09] MEDS: Albuterol 2.5 MG/3 ML NEBULIZER IH SCH ×2 (03:36→09:54)
[2018-05-09 04:17] LABS: Hematocrit 34.1 % (37.5-50.1); Hemoglobin 11.4 g/dL (12.9-16.9); Mean Corpuscular HGB Conc 33.4 g/dL (31.6-35.5); Mean Corpuscular Hemoglobin 32.5 pg (28.0-33.3); Mean Corpuscular Volume 97.2 fL (83.0-100.0); Mean Platelet Volume 10.7 fL (9.4-12.4); Platelet Count 102 K/mcL (140-400); Red Blood Count 3.51 M/mcL (4.19-5.50); Red Cell Distribution Width 12.4 % (11.5-14.5)
[2018-05-09 04:53] LABS: Calcium 8.5 mg/dL (8.6-10.3)
[2018-05-09 04:54] LABS: BUN/Creatinine Ratio 10 (6-26); Blood Urea Nitrogen 9 mg/dL (6-20); Carbon Dioxide 22 mEq/L (23-29); Chloride 112 mEq/L (98-107); Glucose 103 mg/dL (70-105); Osmolality,Calculated 285 (280-300); Potassium 3.8 mEq/L (3.5-5.1); Sodium 138 mEq/L (136-145); eGFR For Non-African Americans > 60 (> 60)
[2018-05-09 07:06] VITALS: BP 112/65
[2018-05-09] MEDS: traMADol 50 MG TABLET PO PRN (09:02)
--- NOTE | 2018-05-09 09:20 | Discharge Summary ---
- NOTES TO OUTPATIENT PROVIDER Notes to Outpatient Provider: f/u with Surgery Dr. Sanders within a week. Change dressing daily. Orders not resulted at time of discharge: Pending orders 05/06/18 20:09 Culture,Blood [BC] Stat 05/07/18 16:01 Surgical Pathology [PTH] Routine 05/07/18 16:09 Culture,Anaerobic [RM] Routine Culture,Wound [RM] Routine Date of Encounter: 05/09/18 Time of Encounter: 09:14 - Discharge Diagnosis (1) Cellulitis and abscess of upper extremity Priority: Primary Status: Acute (2) IV drug abuse Priority: Secondary Status: Chronic (3) Tobacco abuse Priority: Secondary Status: Chronic (4) Decreased hemoglobin Priority: Primary Status: Resolved (5) Serum sodium decreased Priority: Primary Status: Resolved Hospital course: Mr. Redding is a 47 year old male with past medical history of pneumonia, sepsis, and IV drug abuse with previous abscesses who presents for complaints of abscess to right antecubital fossa getting progressively worse over past five days following injecting heroin. Was seen and treated for same in February 2018 near the same site but patient states this isn't the same exact site as last time. Site has been getting increasingly red, swollen, warm, and painful. No alleviating or exacerbating factors. No home treatment. Denies headache, chest pain, shortness of breath, abdominal pain, bowel or bladder changes, numbness, tingling, fever, or chills. Does report intermittent productive cough with yellow sputum over past two weeks so ER obtained chest xray which showed no acute process. ER performed stab incision with some drainage and pain relief. Reports using IV heroin twice per day but has not used any for past 4 days due to abscess. Patient denies any daily medications. Pt underwent incision and drainage by general surgery on 05/07, abscess was explored and drained, a segmental thrombosed anticubital vein was laying in the middle of abscess, which was excised. Wound cx sent. Pt was placed on Zosyn and vanco. Wound cx grew Gram positive bacili on 05/09, Pt wound healed well, pt was afebrile with normal WBC, IV abx dc'ed on 05/09 and changed to oral clindamycin. Pt was instructed to change dressing every day, take oral abx for 10 more days, and f/u with general surgery within a week. Discharge discussed with: patient Time spent discussing smoking cessation with patient: more than 10 minutes - Time Spent with Patient Total time spent providing and/or coordinating discharge services: 45 mins. Greater than 30 minutes - Discharge Medications Prescriptions: Clindamycin [Cleocin] 300 mg PO Q8HR #30 capsule Tramadol HCl [Ultram] 50 mg PO TID PRN 3 Days #9 tab PRN Reason: Severe Pain Home Medications: Acetaminophen [8 Hour] 650 mg PO Q8H PRN #24 tablet.er 03/24/18 [Rx] Clindamycin [Cleocin] 300 mg PO Q8HR #30 capsule 05/09/18 [Rx] Tramadol HCl [Ultram] 50 mg PO BID PRN 4 Days #8 tab 05/09/18 [Rx] Allergies/Adverse Reactions: Allergy/AdvReac Type Severity Reaction Status Date / Time hydrocodone [From Vicodin] AdvReac Itching Verified 05/05/18 13:27 Date of admission: 05/07/18 13:08 Primary care physician: PCP NONE Consults: 05/06/18 22:23 Consult to Surgery [CONS] Stat Consulting Provider: [facility] Reason for Consult: right AC abscess Time Notified: 22:00 Call Completed: Yes Anticipated date of discharge: 05/09/18 - Constitutional Vitals: Temp Pulse Resp BP Pulse Ox 98.5 F 53 16 112/65 97 05/09/18 07:01 05/09/18 07:01 05/09/18 07:01 05/09/18 07:01 05/09/18 07:01 General appearance: Present: cooperative, A&O X 3 Exam: General: Alert and oriented. Skin:Normal color, no rash. Multiple IV drug use lesions noted to upper extremities. HEENT:Pupils equal, round and reactive. Cardiovascular:Normal S1 & S2, no rubs, murmurs or gallops. No JVD. Pulse regular. Lungs:Breath sounds decreased, no wheezes or crackles. Abdomen:Soft, non-tender, no rigidity. Extremities:No deformity, no clubbing. dressing to right anticubital region dry and intact. Distal PMS intact. Neurological:Normal cognition and motor skills. Pulses:Carotid and radial pulses normal +2. Rest of the physical exam is non contributory. - Patient Status Disposition: Home, Self-Care Condition: Good Functional capacity at discharge: independent ambulation Overall status at discharge: patient is progressing back to baseline - Discharge Instructions Follow Up With: NONE,PCP [Primary Care Provider] - Additional Instructions: daily packing with iodoform with a secondary dressing of gauze and tape. - Diet and Activity Activity: increase activity as tolerated Diet: advance to your usual diet - VTE Documentation of Mechanical Device: Intermittent pneumatic compression device
== END 2018-05-09 11:40 | disposition home or self-care (01) | DRG 364 ==
LOC: 3BNU 17:05 → EMEROOARM 17:05 → 3BNU 05-07 00:04
PROVIDERS: ADMIT Family Medicine; ATTEND Family Medicine

== ENCOUNTER 2020-05-15 08:11 | Observation (INO) ==
[2020-05-15] MEDS ORDERED: methylPREDNISolone 125 MG/2 ML VIAL IVP ONE (08:26)
[2020-05-15] MEDS ORDERED: Ipratropium/Albuterol Neb 3 ML IH STA (08:26)
[2020-05-15] MEDS ORDERED: Isovue-370 500 ML BOTTLE IVP ONE (09:31)
[2020-05-15 09:33] LABS: Basophils % 0.5 %; Eosinophils # 0.1 K/mcL (0.0-0.6); Eosinophils % 1.3 %; Hematocrit 42.2 % (37.5-50.1); Hemoglobin 14.5 g/dL (12.9-16.9); Immature Granulocytes % 0.3 % (0-4); Lymphocytes # 0.8 K/mcL (0.6-4.6); Lymphocytes % 8.7 %; Mean Corpuscular HGB Conc 34.4 g/dL (31.6-35.5); Mean Corpuscular Hemoglobin 32.4 pg (28.0-33.3); Mean Corpuscular Volume 94.2 fL (83.0-100.0); Mean Platelet Volume 10.8 fL (9.4-12.4); Monocytes # 0.6 K/mcL (0.0-1.3); Monocytes % 6.5 %; Neutrophils # 7.2 K/mcL (1.6-8.9); Platelet Count 146 K/mcL (140-400); Red Blood Count 4.48 M/mcL (4.19-5.50); Red Cell Distribution Width 12.3 % (11.5-14.5); Segmented Neutrophils % 82.7 %; White Blood Count 8.6 K/mcL (4.3-11.1)
[2020-05-15 09:33] LABS: Adenovirus Not Detected (Not Detect); Bordetella Pertussis Not Detected (Not Detect); Chlamydophila pneumoniae Not Detected (Not Detect); Coronavirus 229E Not Detected (Not Detect); Coronavirus HKU1 Not Detected (Not Detect); Coronavirus NL63 Not Detected (Not Detect); Coronavirus OC43 Not Detected (Not Detect); Human Metapneumovirus Not Detected (Not Detect); Human Rhinovirus/Enterovirus DETECTED (Not Detect); Influenza A Subtype 2009 H1 Not Detected (Not Detect); Influenza B Not Detected (Not Detect); Mycoplasma pneumoniae Not Detected (Not Detect); Parainfluenza Virus 1 Not Detected (Not Detect); Parainfluenza Virus 2 Not Detected (Not Detect); Parainfluenza Virus 3 Not Detected (Not Detect); Parainfluenza Virus 4 Not Detected (Not Detect); Respiratory Syncytial Virus Not Detected (Not Detect); SARS-CoV-2 Not Detected (Not Detect)
[2020-05-15 09:53] LABS: BUN/Creatinine Ratio 20 (6-26); Blood Urea Nitrogen 14 mg/dL (6-20); Calcium 9.8 mg/dL (8.6-10.3); Carbon Dioxide 32 mEq/L (23-29); Chloride 101 mEq/L (98-107); Glucose 121 mg/dL (70-105); Osmolality,Calculated 288 (280-300); Potassium 4.1 mEq/L (3.5-5.1); Sodium 138 mEq/L (136-145); Troponin I < 0.03 ng/mL (< 0.04); eGFR For African Americans > 60 (> 60); eGFR For Non-African Americans > 60 (> 60)
[2020-05-15] MEDS ORDERED: Ondansetron 4 MG/2 ML VIAL IVP ONE (10:10)
[2020-05-15] MEDS ORDERED: cefTRIAXone 1,000 MG in Water for inj. (sterile) 10 ML IVP ONE (11:27)
[2020-05-15] MEDS ORDERED: Naloxone 0.4 MG/ML INJ IVP PRN (13:30)
[2020-05-15] MEDS: Ipratropium/Albuterol Neb 3 ML IH SCH ×3 (14:06→19:32)
[2020-05-15 14:11] LABS: ABG Base Excess 5 mEq/L (-2 to 3); ABG HCO3 31 mEq/L (21-27); ABG Oxygen Saturation 99 % (95-98); ABG PCO2 49 mmHg (35-45); ABG PH 7.41 pH Units (7.32-7.45); ABG PO2 116 mmHg (85-104); ABG TCO2 32 mEq/L (20-26)
[2020-05-15] MEDS ORDERED: Perflutren Lipid Microsphere 1.3 ML in 0.9 % Sodium Chloride 8.7 ML IVP PRN (14:14)
[2020-05-15] MEDS: Piperacillin/Tazobactam 3.375 GM in 0.9 % Sodium Chloride Mini Bag 100 ML IVPB SCH (18:44)
[2020-05-15] MEDS: cloNIDine HCL 0.1 MG TABLET PO SCH ×2 (18:45→22:14)
[2020-05-15] MEDS: *HR* Heparin 5,000 UNIT/ML VIAL SQ SCH (18:45)
[2020-05-16] MEDS: Ipratropium/Albuterol Neb 3 ML IH SCH ×7 (00:02→22:58)
[2020-05-16] MEDS: Piperacillin/Tazobactam 3.375 GM in 0.9 % Sodium Chloride Mini Bag 100 ML IVPB SCH ×3 (00:17→18:39)
[2020-05-16 06:35] LABS: BUN/Creatinine Ratio 26 (6-26); Blood Urea Nitrogen 20 mg/dL (6-20); Calcium 9.5 mg/dL (8.6-10.3); Carbon Dioxide 28 mEq/L (23-29); Chloride 105 mEq/L (98-107); Glucose 129 mg/dL (70-105); Magnesium 1.8 mg/dL (1.6-2.6); Osmolality,Calculated 294 (280-300); Phosphorous 4.2 mg/dL (2.7-4.5); Sodium 140 mEq/L (136-145); eGFR For African Americans > 60 (> 60); eGFR For Non-African Americans > 60 (> 60)
[2020-05-16] MEDS: MethylPREDNISolone 40 MG/ML VIAL IVP SCH ×2 (06:51→18:39)
[2020-05-16] MEDS: *HR* Heparin 5,000 UNIT/ML VIAL SQ SCH ×2 (06:52→18:40)
[2020-05-16] MEDS: cloNIDine HCL 0.1 MG TABLET PO SCH ×2 (09:17→20:22)
[2020-05-16 14:14] LABS: Amphetamine Screen,Urine Negative ng/mL (Cutoff=1000); Barbiturate Screen,Urine Negative ng/mL (Cutoff=200); Benzodiazepines Screen,Urine Negative ng/mL (Cutoff=200); Cannabinoid Screen,Urine Positive ng/mL (Cutoff = 50); Cocaine Screen,Urine Negative ng/mL (Cutoff= 300); Opiate Screen,Urine Negative ng/mL (Cutoff=300); Phencyclidine Screen,Urine Negative ng/mL (Cutoff=25)
[2020-05-16] MEDS: Vancomycin 1,250 MG/262.5 ML IV.SOLN IVPB SCH ×2 (18:38→23:57)
[2020-05-16] MEDS ORDERED: Melatonin 3 MG TABLET PO PRN (20:38)
[2020-05-17 02:33] LABS: BUN/Creatinine Ratio 24 (6-26); Blood Urea Nitrogen 20 mg/dL (6-20); Calcium 9.2 mg/dL (8.6-10.3); Carbon Dioxide 25 mEq/L (23-29); Chloride 106 mEq/L (98-107); Glucose 200 mg/dL (70-105); Magnesium 1.9 mg/dL (1.6-2.6); Osmolality,Calculated 296 (280-300); Phosphorous 4.1 mg/dL (2.7-4.5); Potassium 4.2 mEq/L (3.5-5.1); Sodium 139 mEq/L (136-145); eGFR For African Americans > 60 (> 60); eGFR For Non-African Americans > 60 (> 60)
[2020-05-17] MEDS: Ipratropium/Albuterol Neb 3 ML IH SCH ×3 (03:42→11:00)
[2020-05-17] MEDS: *HR* Heparin 5,000 UNIT/ML VIAL SQ SCH (05:22)
[2020-05-17] MEDS ORDERED: Albuterol 2.5 MG/3 ML NEBULIZER IH PRN (05:27)
[2020-05-17] MEDS ORDERED: predniSONE 20 MG TABLET PO SCH (09:00)
[2020-05-17] MEDS: Piperacillin/Tazobactam 3.375 GM in 0.9 % Sodium Chloride Mini Bag 100 ML IVPB SCH ×2 (09:32)
[2020-05-17] MEDS: cloNIDine HCL 0.1 MG TABLET PO SCH (09:33)
[2020-05-17] MEDS: Vancomycin 1,250 MG/262.5 ML IV.SOLN IVPB SCH (10:55)
[2020-05-17 11:12] VITALS: BP 134/75
[2020-05-17 12:14] LABS: Estimated Average Glucose 120 mg/dl; Hemoglobin A1C 5.8 %
[2020-05-17 18:37] LABS: Amphetamines NEGATIVE ng/mL (Cutoff 20); Barbiturates NEGATIVE ng/mL (Cutoff 50); Benzodiazepines NEGATIVE ng/mL (Cutoff 50); Buprenorphine NEGATIVE ng/mL (Cutoff 1); Cocaine NEGATIVE ng/mL (Cutoff 20); Methadone NEGATIVE ng/mL (Cutoff 25); Methamphetamines NEGATIVE ng/mL (Cutoff 20); Opiates NEGATIVE ng/mL (Cutoff 20); Phencyclidine NEGATIVE ng/mL (Cutoff 10)
== END 2020-05-17 14:57 | disposition home or self-care (01) ==
LOC: 3BNU 08:11 → EMEROOARM 08:11 → SUATTDRO 13:40 → 3BNU 14:31
PROVIDERS: ADMIT Internal Medicine; ATTEND Internal Medicine